=== PATIENT | female | born 1985 | race Hispanic/Latino ===

== ENCOUNTER 2021-02-25 04:01 | Day surgery (SDC) | payer BC ==
[2021-02-25 04:25] VITALS: BMI 31.4
[2021-02-25 05:14] LABS: Bilirubin Neg (Negative); Blood, Urine 250 (Negative); Clarity Cloudy (Clear); Glucose, Urine (Dipstick) Normal (Negative); Ketone, Urine Negative (Negative); Leukocyte 500 (Negative); Nitrite Positive (Negative); Protein, Urine (Dipstick) 500 mg/dl (Neg-Trace); Specific Gravity, Urine 1.015 (1.002-1.036); Urobilinogen Normal mg/dL (Less than 2); pH, Urine 6.5 (5.0-9.0)
[2021-02-25 05:53] LABS: Bacteria/HPF 1+ HPF (None Seen); RBC/HPF Greater than 50 HPF (0-3); Squamous Epithelial None Seen HPF (0-3); WBC/HPF Greater than 50 HPF (0-3)
[2021-02-25] MEDS ORDERED: hydrALAZINE 20 MG/ML VIAL SLOW IVP PRN (06:46)
[2021-02-25] MEDS ORDERED: Lactated Ringer's 1,000 ML IV SCH (07:00)
[2021-02-25] MEDS ORDERED: cefTRIAXone\\ROCEPHIN 1 GM in Sodium Chloride 0.9% 100 ML IVPB SCH (08:00)
[2021-02-25] MEDS ORDERED: Ondansetron PF 4 MG/2 ML Vial IVP PRN (08:07)
[2021-02-25] MEDS ORDERED: Ondansetron ODT 4 MG TAB PO PRN (08:07)
[2021-02-25 08:57] LABS: #Eosinphils 0.1 10x3/uL (0.0-0.5); #Monocytes 0.6 10x3/uL (0.0-1.1); #Neutrophils 9.4 10x3/uL (1.5-8.4); %Basophils 0.2 % (0.0-2.0); %Eosinophils 0.8 % (0.0-6.0); %Monocytes 5.2 % (0.0-10.0); %Neutrophils 78.1 % (40.0-75.0); Hemoglobin 10.5 g/dL (12.0-15.5); Mean Corpuscular HGB CONC 31.3 g/dL (32.0-36.0); Mean Corpuscular Hemoglobin 26.3 pg (27.0-33.0); Mean Corpuscular Volume 84.2 fl (81.6-98.3); Mean Platelet Volume 10.4 fl (7.4-10.4); Platelet Count 216 10x3/uL (150-450); RBC Distribution Width 14.9 % (11.5-14.5); Red Blood Cell (RBC) Count 3.99 10x6/uL (3.90-5.03); White Blood Cell (WBC) Count 12.1 10x3/uL (3.5-10.5)
[2021-02-25] MEDS: NIFEdipine 10 MG CAP PO PRN ×3 (09:26→10:31)
[2021-02-25] MEDS ORDERED: NIFEdipine 10 MG CAP PO SCH (09:30)
[2021-02-25 10:19] LABS: SARS-CoV-2 NAA Rapid Test Not Detected (NotDetected)
== END 2021-02-25 14:57 | disposition home or self-care (01) ==
LOC: CSHLD/OP 04:01
PROVIDERS: ATTEND Obstetrics & Gynecology
DX: O23.03 Infections of kidney in pregnancy, third trimester (principal); O47.03 False labor before 37 completed weeks of gestation, third trimester; O99.513 Diseases of the respiratory system complicating pregnancy, third trimester; J45.909 Unspecified asthma, uncomplicated; O34.211 Maternal care for low transverse scar from previous cesarean delivery; O09.523 Supervision of elderly multigravida, third trimester; Z3A.35 35 weeks gestation of pregnancy; Z79.899 Other long term (current) drug therapy; Z20.822 Contact with and (suspected) exposure to COVID-19
CPT/HCPCS: 0240U; 36415; 81001; 85025; J0696; J3490

== ENCOUNTER 2021-03-15 10:31 | Outpatient (CLI) | payer BC ==
[2021-03-15 23:34] LABS: SARS-CoV-2 PCR by NAA DETECTED (NotDetected)
== END 2021-03-15 10:32 | disposition home or self-care (01) ==
LOC: CSHLAB 10:31
PROVIDERS: ATTEND Obstetrics & Gynecology
DX: U07.1 COVID-19 (principal)
CPT/HCPCS: U0003; U0005

== ENCOUNTER 2021-03-18 17:56 | Inpatient (IN) | payer BC, MEDICAID, SELFPAY ==
[2021-03-18] MEDS ORDERED: hydrALAZINE 20 MG/ML VIAL SLOW IVP PRN ×3 (18:06→23:00)
[2021-03-18] MEDS ORDERED: Promethazine HCl 25 MG/ML VIAL IM PRN ×2 (18:33→21:15)
[2021-03-18] MEDS ORDERED: Ondansetron PF 4 MG/2 ML Vial IVP PRN ×3 (18:33→23:00)
[2021-03-18] MEDS ORDERED: Famotidine/PF 20 mg/2ml Vial SLOW IVP PRN (18:33)
[2021-03-18] MEDS ORDERED: Bicitra 30 ML UDCUP PO PRN (18:33)
[2021-03-18] MEDS ORDERED: Lactated Ringer's 1,000 ML IV SCH (18:45)
[2021-03-18] MEDS ORDERED: ceFAZolin 2 GM/Dextrose 50 ML 2 GM in Premix Bag 1 BAG IVPB SCH (18:45)
[2021-03-18] MEDS ORDERED: Azithromycin 500 MG in Sodium Chloride 0.9% 250 ML 250 ML IVPB SCH (18:45)
[2021-03-18 19:04] VITALS: BMI 31.2
[2021-03-18 19:49] LABS: Hemoglobin 10.8 g/dL (12.0-15.5); Mean Corpuscular HGB CONC 31.6 g/dL (32.0-36.0); Mean Corpuscular Volume 82.2 fl (81.6-98.3); Mean Platelet Volume 10.5 fl (7.4-10.4); Platelet Count 228 10x3/uL (150-450); RBC Distribution Width 15.5 % (11.5-14.5); Red Blood Cell (RBC) Count 4.16 10x6/uL (3.90-5.03); White Blood Cell (WBC) Count 8.3 10x3/uL (3.5-10.5)
[2021-03-18] MEDS ORDERED: Bicitra 30 ML UDCUP ONE (20:02)
[2021-03-18] MEDS ORDERED: Fentanyl 100 MCG/2 ML VIAL ONE (20:09)
[2021-03-18] MEDS ORDERED: Morphine PF 10 MG/10 ML VIAL ONE (20:10)
[2021-03-18 20:13] LABS: Hep B Surf Ag Non-Reactive S/CO (NonReactive); Syphilis Antibody Nonreactive (Nonreactive); Syphilis Antibody Index 0.06 S/CO (<1.00 Non-Reactive)
[2021-03-18 20:14] LABS: HBSAg Index 0.19 S/CO (0-0.99)
[2021-03-18] MEDS ORDERED: PHENYLEPHRINE-NS 100 MCG/ML 10 ML SYRINGE ONE (20:14)
[2021-03-18] MEDS ORDERED: ePHEDrine Sulfate 50 MG/10 ML VIAL ONE (20:14)
[2021-03-18] MEDS ORDERED: Oxytocin 10 UNITS/ML VIAL ONE (20:14)
[2021-03-18] MEDS ORDERED: Ondansetron PF 4 MG/2 ML Vial ONE (20:51)
[2021-03-18] MEDS ORDERED: Dexamethasone 4 mg/ml Vial ONE (20:51)
[2021-03-18] MEDS ORDERED: Ketorolac Tromethamine 30 MG/ML VIAL ONE (20:51)
[2021-03-18] MEDS ORDERED: Meperidine HCl/PF 25 MG/ML VIAL SLOW IVP PRN (21:15)
[2021-03-18] MEDS ORDERED: Ondansetron HCl/PF 4 MG/2 ML Vial IVP PRN (21:15)
[2021-03-18] MEDS ORDERED: Promethazine HCl 25 MG SUPP PR PRN (21:15)
[2021-03-18] MEDS ORDERED: Ketorolac Tromethamine 30 MG/ML VIAL IVP PRN (21:15)
[2021-03-18] MEDS ORDERED: HYDROmorphone 2 MG/ML VIAL SLOW IVP PRN (21:15)
[2021-03-18] MEDS ORDERED: Hydrocerin (Eucerin) Cream 120 gm Jar TOP PRN (21:15)
[2021-03-18] MEDS ORDERED: diphenhydrAMINE 50 MG/ML VIAL IVP PRN (21:15)
[2021-03-18] MEDS ORDERED: Fentanyl 100 MCG/2 ML VIAL SLOW IVP PRN (21:15)
[2021-03-18] MEDS ORDERED: Naloxone HCl 0.4 mg/ml Vial IVP PRN ×2 (21:15)
[2021-03-18] MEDS ORDERED: Communication Order-Pharmacy FS SCH (21:15)
[2021-03-18] MEDS ORDERED: Naloxone HCl 0.4 mg/ml Vial IV PRN (21:15)
[2021-03-18] MEDS ORDERED: NS w/ Oxytocin 30 units 500 ML IV SCH (23:00)
[2021-03-18] MEDS ORDERED: diphenhydrAMINE 25 MG CAP PO PRN (23:00)
[2021-03-18] MEDS ORDERED: Bisacodyl 10 MG SUPP PR PRN (23:00)
[2021-03-18] MEDS ORDERED: Boostrix 0.5 ML (Tdap) VIAL IM ONE (23:00)
[2021-03-18] MEDS: Docusate 100 MG CAP PO SCH (23:57)
[2021-03-18] MEDS: Ferrous Sulfate 325 MG TAB PO SCH (23:57)
[2021-03-19 05:49] LABS: Hemoglobin 8.8 g/dL (12.0-15.5); Mean Corpuscular HGB CONC 31.9 g/dL (32.0-36.0); Mean Corpuscular Hemoglobin 26.3 pg (27.0-33.0); Mean Corpuscular Volume 82.4 fl (81.6-98.3); Mean Platelet Volume 10.8 fl (7.4-10.4); Platelet Count 201 10x3/uL (150-450); RBC Distribution Width 15.7 % (11.5-14.5); Red Blood Cell (RBC) Count 3.35 10x6/uL (3.90-5.03); White Blood Cell (WBC) Count 14.5 10x3/uL (3.5-10.5)
[2021-03-19] MEDS: Prenatal Vitamin 1 TAB PO SCH (08:56)
[2021-03-19] MEDS: Ferrous Sulfate 325 MG TAB PO SCH ×2 (08:56→21:49)
[2021-03-19] MEDS: Docusate 100 MG CAP PO SCH ×2 (08:56→21:50)
[2021-03-19] MEDS ORDERED: HYDROcodone/Acetaminophen 5/325 mg Tablet PO PRN (09:15)
[2021-03-19] MEDS: HYDROcodone/Acetaminophen 5/325 mg Tablet PO PRN ×2 (09:49→17:22)
[2021-03-19] MEDS: Simethicone Chewable 80 MG TAB PO PRN ×2 (09:49→17:22)
[2021-03-19] MEDS: Ibuprofen 800 MG TAB PO SCH (21:50)
[2021-03-20] MEDS: Ibuprofen 800 MG TAB PO SCH (05:30)
[2021-03-20 08:55] VITALS: BP 103/61; TEMP 97.4
[2021-03-20] MEDS: Ferrous Sulfate 325 MG TAB PO SCH (09:39)
[2021-03-20] MEDS: Docusate 100 MG CAP PO SCH (09:39)
[2021-03-20] MEDS: Prenatal Vitamin 1 TAB PO SCH (09:39)
== END 2021-03-20 12:25 | disposition home or self-care (01) | DRG 786 ==
LOC: CSHLD/OP 17:56 → CSHLD 19:15 → CSHPP 23:10
PROVIDERS: ADMIT Obstetrics & Gynecology; ATTEND Obstetrics & Gynecology
PROC: 10D00Z1 Extraction of Products of Conception, Low, Open Approach (ICD-10-PCS; principal; 2021-03-18)
DX: O34.211 Maternal care for low transverse scar from previous cesarean delivery (principal); U07.1 COVID-19; O98.52 Other viral diseases complicating childbirth; O99.62 Diseases of the digestive system complicating childbirth; K66.0 Peritoneal adhesions (postprocedural) (postinfection); O99.02 Anemia complicating childbirth; Z3A.38 38 weeks gestation of pregnancy; Z37.0 Single live birth
CPT/HCPCS: 36415; 51702; 85027; 86780; 86850; 86900; 86901; 87340; 99285; J1100; J1885; J2274; J2405; J2590; J3010; U0003; U0005